=== PATIENT | female | born 1960 | race Caucasian/White ===

== ENCOUNTER 2017-01-18 14:32 | Emergency (ER) | payer BC ==
[2017-01-18 15:00] VITALS: BP 178/80; PULSE 72
--- NOTE | 2017-01-18 15:36 | XRAY ---
Indication: Pain following fall. Comparison: None 3 views of the left hand demonstrates minimally displaced and minimally angulated oblique fracture involving the fourth metacarpal shaft. Mild IP degenerative changes of the thumb. No other bony, articular, or soft tissue abnormalities.
--- NOTE | 2017-01-18 16:11 | ERPHSYRPT ---
- History of Present Illness Time Seen by Provider: 01/18/17 16:04 Source: patient Exam Limitations: no limitations Patient Subjective Stated Complaint: pt states she fell and landed on left hand. pt c/o pain to left hand. states injury happened last pm at home. Triage Nursing Assessment: pt pink, warm, dry. pt has mild swelling and bruising to anterior left hand. radial pulse strong. pt able to extend fingers. Physician History: The patient is a 56-year-old female who fell last evening at home landing on her left hand and then causing pain to the left hand. The left hand is swollen and painful. Occurred: yesterday Reason for Fall: tripped Injuries/Pain Location: upper extremity Loss of Consciousness: no loss of consciousness Quality: aching Severity of Pain-Max: moderate Severity of Pain-Current: moderate Modifying Factors: Improves With: nothing Associated Symptoms (Fall): extremity injury Allergies/Adverse Reactions: No Known Drug Allergies Allergy (Unverified 01/18/17 15:00) Home Medications: Carvedilol 3.125 mg [Coreg 3.125 MG] 3.125 mg PO DAILY 01/18/17 [History] Lisinopril 5 mg [Zestril 5 MG] 5 mg PO DAILY 01/18/17 [History] Hx Tetanus, Diphtheria Vaccination/Date Given: Yes (up to date) Hx Influenza Vaccination/Date Given: Yes Hx Pneumococcal Vaccination/Date Given: No Immunizations Up to Date: Yes - Review of Systems Constitutional: No Fever, No Chills Eyes: No Symptoms Ears, Nose, & Throat: No Symptoms Respiratory: No Cough, No Dyspnea Cardiac: No Chest Pain, No Edema, No Syncope Abdominal/Gastrointestinal: No Abdominal Pain, No Nausea, No Vomiting, No Diarrhea Genitourinary Symptoms: No Dysuria Musculoskeletal: Fall, Injury Skin: No Rash Neurological: No Dizziness, No Focal Weakness, No Sensory Changes Psychological: No Symptoms Endocrine: No Symptoms Hematologic/Lymphatic: No Symptoms Immunological/Allergic: No Symptoms All Other Systems: Reviewed and Negative - Past Medical History Pertinent Past Medical History: Yes Female Reproductive Disorders: Cervical Cancer - Past Surgical History Past Surgical History: Yes Female Surgical History: Hysterectomy - Social History Smoking Status: Former smoker Exposure to second hand smoke: Yes Drug Use: none Patient Lives Alone: No - Nursing Vital Signs Nursing Vital Signs: Initial Vital Signs Temperature 97.8 F Pulse Rate 72 Respiratory Rate 20 Blood Pressure [Right Arm] 178/80 Pain Intensity 4 - Padmini Coma Score Best Eye Response ([place]): (4) open spontaneously Best Verbal Response ([place]): (5) oriented Best Motor Response ([place]): (6) obeys commands [place] Total: 15 - Physical Exam General Appearance: no apparent distress, alert Head Injury: no evidence of injury Eye Exam: PERRL/EOMI ENT Exam: airway nml Neck Exam: normal inspection, No tenderness Respiratory/Chest Exam: normal breath sounds, No chest tenderness, No respiratory distress Cardiovascular Exam: normal heart sounds, regular rate/rhythm Gastrointestinal Exam: soft, No tenderness, No distention, No guarding, No ecchymosis Rectal Exam: not done Back Exam: normal inspection, No vertebral tenderness Extremity Exam: limited range of motion, pain with movement, tenderness, other ( left hand in swollen, tender, bruised.) Neurologic Exam: alert, oriented x 3, cooperative, sensation nml, No motor deficits Skin Exam: normal color, warm, dry SpO2 Interpretation: normal Procedures - Splinting Location of Splint: Left Type of Splint: Orthoglass Short Arm Splint - Radiology Exams Left Hand X-ray Interpretation: Teleradiologist Report, Non-displaced Fracture (left 4th metacarpal) Ordered Tests: Active Orders 24 hr Category Date Time Status Splint STAT Care 01/18/17 15:53 Active HAND (MINIMUM 3 VIEWS) Stat Exams 01/18/17 15:01 Completed - Progress Progress: improved, pain not gone completely Counseled pt/family regarding: rad results - Departure Time of Disposition: 16:13 Departure Disposition: Home Clinical Impression: Metacarpal bone fracture Condition: Stable Critical Care Time: No Additional Instructions: You have broken a bone in your left hand. Keep the cast on for 6 weeks, but you can unwrap it as needed for bathing. Follow up in 1 week.Naproxen 500 mg twice a day as needed. Elevate. Ice. Prescriptions: Naproxen 500 mg PO BID PRN #30 tablet
== END 2017-01-18 16:38 | disposition home or self-care (01) ==
LOC: ED 14:32
PROC: 2W3FX1Z Immobilization of Left Hand using Splint (ICD-10-PCS; principal; 2017-01-18)
DX: S62.305A Unspecified fracture of fourth metacarpal bone, left hand, initial encounter for closed fracture (principal); W01.10XA Fall on same level from slipping, tripping and stumbling with subsequent striking against unspecified object, initial encounter; C76.0 Malignant neoplasm of head, face and neck
CPT/HCPCS: 29126; 73130; 99284